=== PATIENT | female | born 2000 | race Asian ===

== ENCOUNTER 2021-05-28 14:24 | Emergency (ER) | payer MEDICAID ==
[~2021-05-28] VITALS: Ht 167.6 cm; Wt 63.6 kg
[2021-05-28 15:15] VITALS: BP 119/54
[2021-05-28] MEDS ORDERED: LIDOCAINE/PF 1% 2 ML VIAL IM ONE (15:45)
[2021-05-28] MEDS ORDERED: ACETAMINOPHEN 500 MG TABLET PO ONE (15:45)
[2021-05-28] MEDS ORDERED: CefTRIAXone SODIUM 1 GM/VIAL IM ONE (15:45)
[2021-05-28] MEDS ORDERED: AZITHROMYCIN 500 MG TABLET PO ONE (15:45)
[2021-05-28] MEDS ORDERED: FLUCONAZOLE 150 MG TABLET PO ONE (15:45)
[2021-05-28 15:53] LABS: APPEARANCE,URINE CLEAR (CLEAR); BILIRUBIN,URINE NEGATIVE (NEGATIVE); GLUCOSE, URINE (UA) NEGATIVE (NEGATIVE); KETONES,URINE NEGATIVE (NEGATIVE); LEUKOCYTE ESTERASE ,URINE MODERATE (NEGATIVE); NITRATE,URINE NEGATIVE (NEGATIVE); OCCULT BLOOD,URINE MODERATE (NEGATIVE); PH,URINE 6.5 (5.0-8.0); PROTEIN,URINE NEGATIVE (NEGATIVE)
[2021-05-28 16:34] LABS: SQUAMOUS EPITHELIAL CELL,UR Few /LPF (None Seen)
[2021-05-28 16:37] LABS: BACTERIA,URINE Few /HPF (None Seen)
== END 2021-05-28 16:19 | disposition home or self-care (01) ==
LOC: EMS 14:24
DX: N89.8 Other specified noninflammatory disorders of vagina (principal)
CPT/HCPCS: 81001; 81025; 87077; 87086; 87186; 87491; 87591; 96372; 99284; A9575; J0696; J3490; Q9967